=== PATIENT | female | born 2000 | race Two or more races ===

== ENCOUNTER 2025-09-03 05:39 | Inpatient (IN) | payer MEDICAID, SELFPAY ==
--- NOTE | 2025-08-30 09:00 | ESHP_ITS ---
RE: ELISABET REEDER : 2000 DATE OF ADMISSION: 09/03/2025 HISTORY OF PRESENT ILLNESS: This is a 25-year-old 2 para 1 with due date of 09/10 with intrauterine at 39 weeks on 09/03 who presents for repeat delivery. She denies any leaking or bleeding. She reports normal movement. She has occasional contractions. ALLERGIES: NO KNOWN DRUG ALLERGIES. MEDICATIONS: multivitamin. SOCIAL HISTORY: She denies any alcohol, drug use, or smoking. PAST MEDICAL HISTORY: Denies. PAST SURGICAL HISTORY: delivery 2017. OB HISTORY: On 07/01/2018, a 39 weeks, delivery, 7-pound male in [place], no complications. REVIEW OF SYSTEMS: She denies any chest pain, palpitations, cough, fever, shortness of breath, or lower extremity pain. She denies any flank pain. PHYSICAL EXAMINATION: VITAL SIGNS: Blood pressure is 110/66, heart rate 88, respiration 18. Temperature is 98.6. Weight 157 pounds. HEENT: Oropharynx and sclerae clear. LUNGS: Clear to auscultation bilaterally. HEART: Regular rate and rhythm. ABDOMEN: Gravid, term size. Old Pfannenstiel scar noted. EXTREMITIES: Nontender. SKIN: No gross rashes or lesions. NEUROLOGIC: No focal deficit. ASSESSMENT AND PLAN: Intrauterine at 39 weeks and 0 days on 09/03. Previous delivery. Elective repeat delivery. PLAN: Repeat delivery. Informed consent was obtained. The patient was made aware of the risks, complications, alternatives, and benefits of the proposed procedure, and she agrees. DT: 09:29:51 TT: 09:42:00 Ref: [id number] - TID: [id number] MTDD
[2025-09-02 12:16] LABS: Basophils # (Auto) 0.0 Thou/mm3 (0.0-0.2); Basophils % (Auto) 0 % (0-2.5); Eosinophils # (Auto) 0.1 Thou/mm3 (0.0-0.5); Eosinophils % (Auto) 1 % (0-10); Hematocrit 37.9 % (36.0-46.0); Hemoglobin 12.7 g/dL (12.0-16.0); Immature Granulocytes Auto 0.03 Thou/mm3 (0.00-0.00); Lymphocytes # (Auto) 2.4 Thou/mm3 (1.0-4.8); Lymphocytes % (Auto) 21 % (10-50); Mean Corpuscular HGB Conc 33.5 g/dl (31.0-37.0); Mean Corpuscular Hemoglobin 29.7 pg (25.0-35.0); Mean Corpuscular Volume 89 fL (80-100); Monocytes # (Auto) 0.7 Thou/mm3 (0.0-0.8); Monocytes % (Auto) 6 % (0-12); Neutrophils # (Auto) 7.8 Thou/mm3 (1.8-7.7); Neutrophils % (Auto) 71 % (37-80); Nucleated Red Blood Cell # 0.00 Thou/mm3 (0.00-0.00); Nucleated Red Blood Cell % 0 /100 WBC (0); Platelet Count 171 Thou/mm3 (140-440); RDW Standard Deviation 41.0 fL (36.4-46.3); Red Blood Count 4.28 Miln/mm3 (4.00-5.20); White Blood Count 11.0 Thou/mm3 (3.6-11.0)
[2025-09-02 12:29] LABS: Alanine Aminotransferase 16 U/L (10-49); Albumin, Serum 4.3 gm/dL (3.5-5.0); Albumin/Globulin Ratio 1.7 (1.2-2.2); Alkaline Phosphatase 177 U/L (46-116); Anion Gap 9 (7-16); Aspartate Amino Transferase 22 U/L (0-34); BUN/Creatinine Ratio 11 Ratio (12-20); Bilirubin,Total 0.5 mg/dL (0.3-1.2); Blood Urea Nitrogen 8 mg/dL (9-23); Calcium 9.3 mg/dL (8.3-10.6); Calcium (Corrected) 9.3 mg/dL (8.5-10.1); Carbon Dioxide 24.3 mMol/L (20.0-31.0); Chloride 107 mMol/L (98-107); Creatinine (Component) 0.7 mg/dL (0.6-1.3); Globulin 2.5 gm/dL (2.3-3.5); Glucose 81 mg/dL (74-106); Osmolality,Calculated 276 (275-295); Potassium 4.3 mMol/L (3.4-5.1); Sodium 140 mMol/L (136-145); Total Protein 6.8 gm/dL (5.7-8.2); eGFR > 60 See Note
[2025-09-02 12:45] LABS: Syphilis Nonreactive (Nonreactive)
[2025-09-02 14:36] LABS: INR 0.9 (0.9-1.3); Partial Thromboplastin Time 27.1 Seconds (22.0-36.0); Prothrombin Time 9.7 Seconds (9.0-12.2)
[2025-09-03] VITALS (34 sets, daily range): BP systolic 100–150; BP diastolic 58–84; PULSE 61–87; RESP 12–21; TEMP 36.3–37; O2SAT 95–100; BMI 26.6
[2025-09-03] MEDS: RINGERS LACTATED 1000 ML 1,000 ML 500 ML IV ×3 (06:10→07:24)
[2025-09-03] MEDS: FAMOTIDINE INJ 10 MG/ML VIAL 2 ML 20 MG IV (07:24)
[2025-09-03] MEDS: CITRIC ACID/SODIUM CITR 15 ML UDC (BICITRA) 30 ML PO (07:24)
[2025-09-03] MEDS: ceFAZolin/D5W 2 GM IV 2 GM/100 ML BAG IV (07:25)
--- NOTE | 2025-09-03 07:36 | PD.ADDHP ---
Addendum History & Physical Addendum Date of report being addended: 09/03/25 Narrative: Patient rexamined. H and P remains unchanged except for pt complains of a rash on the lower abdomen around her old pfannensteil incision. Exam consistent with tinea corporis. Plan for Clotrimazole applications x 7 days.
--- NOTE | 2025-09-03 07:38 | PD.LDDS ---
DS: Providers Provider Date of admission: 09/03/25 05:39 Primary care physician: Danilo Powell MD Admitting Provider: Danilo Powell MD Attending Provider on Admission: Danilo Powell MD Attending Provider on DC: Danilo Powell MD Discharging Provider: Danilo Powell MD DS: Diagnosis Problem List Completed Was Problem List Reviewed/Reconciled?: Yes Summary/Hosp Course Peripartum Data Procedures: Procedures Operation Date: 09/03/25 07:45 <No data on this case meets the specified criteria> Time Spent with Patient Time attestation: Total time spent providing and/or coordinating discharge services: Exam Vital Signs Temp Pulse Resp BP Pulse Ox 98.6 F 85 17 123/73 97 09/03/25 06:45 09/03/25 05:58 09/03/25 06:45 09/03/25 05:58 09/03/25 07:17 Discharge Plan Plan Patient Disposition: HOME (Self Care) Patient condition on transfer: Stable Prescriptions/Referrals Prescriptions/Med Rec: New ibuprofen 600 mg tablet 600 mg PO Q6H PRN (Reason: pain) Qty: 30 0RF PNV no.95-ferrous fumarate-FA [] 28 mg iron- 800 mcg tablet 1 tab PO QDAY Qty: 90 3RF Referrals: Danilo Powell MD [Primary Care Provider, [facility]] Patient/Caregiver Discharge Instructions Discharge Activity: activity as tolerated Other Discharge Activity Instructions:: Follow up office 1 week Education Materials: C Section Dc Print Language: Albanian Stand Alone Forms: Benita Award Info., Patient Portal Info Letter Discharge Order Discharge Orders: Discharge (Routine); Ordered 09/05/25 Ordered By: Danilo Powell Planned Discharge Date 09/05/25
--- NOTE | 2025-09-03 07:38 | PD.GYNPROC ---
Operative Note - [facility]IST[facility] CO[facility] Procedure Date of procedure: 09/03/25 Procedure Performed: Repeat low-transverse section via Pfannenstiel skin incision Indication: Intrauterine at 39 weeks and 0 days Previous delivery Elects repeat delivery Pre-Op diagnosis: Intrauterine at 39 weeks and 0 days Previous delivery Elects repeat delivery Post-Op diagnosis: Intrauterine at 39 weeks and 0 days Previous delivery Elects repeat delivery Anesthesia type: Spinal Procedure description: After proper informed consent was obtained and the patient was made aware of the risks, complications, alternatives and benefits of the proposed procedure she was taken to the operating room where she underwent induction of spinal anesthesia. She was prepped and draped in the usual sterile fashion. A timeout was performed.? A Pfannenstiel skin incision was made with the scalpel and carried through to the underlying layer of fascia with the Bovie. The fascia was nicked in the midline incision and the incision was extended bilaterally with the Bovie. The inferior aspect of the fascial incision was grasped with Yamileth clamps elevated and the underlying rectus muscle dissected off with the Bovie. The superior aspect the fascial incision was grasped with Yamileth clamps elevated and the underlying rectus muscle dissected off with the Bovie. The rectus muscles were in the midline. The peritoneum was grasped between 2 Mcclellan clamps and entered sharply with the Metzenbaum scissors. The peritoneum was extended superiorly and inferiorly with good visualization of the bladder. The vesicouterine peritoneum was incised transversely and the bladder flap created digitally. A [place] blade was inserted. A low transverse incision was made in the uterus with a scapel and the incision was extended digitally. The female 's head delivered and the mouth and nose were suctioned with the bulb suction. The nuchal cord reduced. The shoulder and body delivered atraumatically. The cord was clamped after 30 second delayed cord clamping and the cord was cut.? The infant was handed off to the waiting Pediatric staff, cord blood was collected for lab testing. The placenta was removed complete and intact. The uterus was exteriorized and cleared of all clots and debris. The uterus was initially atonic but responded to uterotonic's . The uterine incision was closed with #1-0 chromic catgut suture in a running interlocking fashion. A second layer of the same suture was used to imbricate the first layer and obtain excellent hemostasis. The vesicouterine peritoneum was closed with 2-0 chromic catgut suture in a running fashion. The firm uterus was returned to the abdomen. The gutters were cleared of all clots and debris. The peritoneum was closed with 0 chromic catgut suture in running fashion. The rectus muscle was closed with 0 chromic catgut suture. The fascia was closed with 0 Vicryl beginning at each angle and ending in the center in a running fashion. The subcutaneous tissue was irrigated with warmed normal saline solution and found to be hemostatic. The subcutaneous tissue was closed with 2-0 chromic catgut suture in a running fashion. The skin was closed with 4-0 Monocryl. A Dermabond Prineo dressing was applied and a sterile pressure dressing was applied.? She tolerated the procedure well. Counts were correct. I discussed with the patient the nature of her condition, intraoperative findings and expectation for recovery all? questions answered. Specimen: none Findings: Live infant female Weight 7 lbs 5 oz Apgars 8 and 9 Clear amniotic fluid Placenta removed complete and intact Cephalic Uterus ovaries and tubes grossly within normal limits Uterus initially atonic but responded to uterotonic's Complications: other (Uterine atony) Surgical staff JEISON Mckenzie Dr, Surgeon Operation Date: 09/03/25 07:45 <No data on this case meets the specified criteria> Diagnosis Discharge Diagnosis (1) delivery delivered: Status: Acute Problem List Completed Was Problem List Reviewed/Reconciled?: Yes
[2025-09-03] MEDS: CLOTRIMAZOLE CR 1% 30 GM TUBE TOP (08:42)
[2025-09-03] MEDS: OXYTOCIN in NS 20 units 20 UNIT/1,000 ML BAG 125 UNIT IV ×2 (09:18→18:12)
[2025-09-03] MEDS: MEPERIDINE INJ 50 MG/ML VIAL 25 MG IVP (09:19)
[2025-09-03] MEDS: ACETAMINOPHEN IVPB 1,000 MG/100 ML VIAL 250 MG IV (10:23)
--- NOTE | 2025-09-03 12:34 | OBDSUM_ITS ---
Data (Gonzalez) Data : 2 Delivery Data (Gonzalez) Labor Data Induction/Augmentation Agent: None ROM date: 09/03/25 ROM time: 08:03 Amniotic membrane rupture type: Artificial Amniotic fluid description: Clear Delivery Data EDC: 09/10/25 EDC calculated by:: LMP/early US confirmation delivery date: 09/03/25 [place] delivery time: 08:03 Gestational age (weeks): 39 Gestational age (days): 0 Placenta delivery date: 09/03/25 Placenta delivery time: 08:05 Delivered by: Delivery nurse: dank cali Neworn nurse: rain cali Window Trimmer Apprentice at delivery: No Support person(s) at delivery: fob Delivery Method Delivery method: Low Transverse Presentation: Vertex position: OA Anesthesia Type Anesthesia Type: Spinal Anesthesia type: Spinal Placenta Placenta delivery description: Manual Removal Cord blood sent to lab: Yes cord blood collection: Cord Blood Type Episiotomy Episiotomy description: None EBL Estimated blood loss (ml): 500 Umbilical Cord cord description: 3 Vessels and Nuchal Cord Additional Procedures None Complications Complications: Uterine atony Data (Gonzalez) [place] Data order: 1 's gender: Female Identification band number: [id number] weight (gms): 7 lb 4.757 oz Weight (pounds): 7 lbs and 4.8 ozs [place] length: 20.47 in 1 minute: 8 5 minutes: 9
[2025-09-03 13:53] LABS: Basophils # (Auto) 0.0 Thou/mm3 (0.0-0.2); Basophils % (Auto) 0 % (0-2.5); Eosinophils # (Auto) 0.0 Thou/mm3 (0.0-0.5); Eosinophils % (Auto) 0 % (0-10); Hematocrit 40.2 % (36.0-46.0); Hemoglobin 13.6 g/dL (12.0-16.0); Immature Granulocytes Auto 0.09 Thou/mm3 (0.00-0.00); Lymphocytes # (Auto) 1.1 Thou/mm3 (1.0-4.8); Lymphocytes % (Auto) 5 % (10-50); Mean Corpuscular HGB Conc 33.8 g/dl (31.0-37.0); Mean Corpuscular Hemoglobin 29.4 pg (25.0-35.0); Mean Corpuscular Volume 87 fL (80-100); Monocytes # (Auto) 0.3 Thou/mm3 (0.0-0.8); Monocytes % (Auto) 2 % (0-12); Neutrophils # (Auto) 18.7 Thou/mm3 (1.8-7.7); Neutrophils % (Auto) 92 % (37-80); Nucleated Red Blood Cell # 0.00 Thou/mm3 (0.00-0.00); Nucleated Red Blood Cell % 0 /100 WBC (0); Platelet Count 178 Thou/mm3 (140-440); RDW Standard Deviation 39.2 fL (36.4-46.3); Red Blood Count 4.62 Miln/mm3 (4.00-5.20); White Blood Count 20.3 Thou/mm3 (3.6-11.0)
[2025-09-04 03:49] VITALS: BP 100/57; PULSE 73; RESP 19; TEMP 36.9; O2SAT 95
[2025-09-04 07:21] VITALS: BP 116/73; PULSE 70; RESP 16; TEMP 36.6; O2SAT 98
[2025-09-04] MEDS: IBUPROFEN TAB 400 MG TABLET 800 MG PO (07:42)
[2025-09-04] MEDS: CLOTRIMAZOLE CR 1% 30 GM TUBE TOP ×2 (07:50→19:59)
--- NOTE | 2025-09-04 07:55 | ESPR_ITS ---
RE: ELISABET REEDER : 2000 DATE OF SERVICE: 09/04/2025 SUBJECTIVE: Post-op day #1, patient denies any problem or complaint. She is voiding and ambulating and tolerating a regular diet. She is passing flatus. She denies any excessive vaginal bleeding. She denies any dizziness or lightheadedness. She denies any chest pain, palpitation, shortness of breath, or lower extremity pain. OBJECTIVE: VITAL SIGNS: Blood pressure 100/57, heart rate 73, respirations 19, temperature is 98.4, pulse ox is 95% on room air. LUNGS: Clear to auscultation bilaterally. HEART: Regular rate and rhythm. ABDOMEN: Dressing dry and intact. Fundus is firm. EXTREMITIES: Nontender. Hemoglobin pre-delivery is 12.7, post delivery is 13.6. ASSESSMENT: Post-op day #1 status post delivery. PLAN: Remove dressing. Discontinue IV. support. Encourage ambulation. Possible discharge home tomorrow. DT: 05:24:56 TT: 07:54:00 Ref: [id number] - TID: [id number]
[2025-09-04] MEDS: ENOXAPARIN SOD INJ 40 MG/0.4 ML SYRINGE SC (09:56)
[2025-09-04] MEDS: DOCUSATE SOD 100 MG CAPSULE PO (09:56)
[2025-09-04] MEDS: SIMETHICONE 80 MG CHEW PO (15:03)
[2025-09-04] MEDS: HYDROcodone/APAP 5/325 TABLET 1 TAB PO ×2 (15:03→21:34)
[2025-09-04 15:20] VITALS: BP 106/58; PULSE 63; RESP 17; TEMP 36.7; O2SAT 99
[2025-09-04 20:00] VITALS: BP 120/74; PULSE 69; RESP 18; TEMP 36.5; O2SAT 98
[2025-09-05] MEDS: IBUPROFEN TAB 400 MG TABLET 800 MG PO ×2 (03:25→08:22)
[2025-09-05 04:00] VITALS: BP 99/64; PULSE 63; RESP 16; TEMP 36.9; O2SAT 98
--- NOTE | 2025-09-05 06:48 | ESPR_ITS ---
RE: ELISABET REEDER : 2000 DATE OF SERVICE: 09/05/2025 SUBJECTIVE: Postoperative day #2. Patient denies any problem or complaints. She is voiding. She is ambulating. She is tolerating regular diet. She is passing flatus. She denies any excessive vaginal bleeding. She denies any dizziness or lightheadedness. She denies any chest pain, palpitation, shortness of breath, or lower extremity pain. OBJECTIVE: VITAL SIGNS: Blood pressure 99/64, heart rate 63, respirations 16, temperature is 98.4. Pulse ox is 98% on room air. LUNGS: Clear to auscultation bilaterally. HEART: Regular rate rhythm. ABDOMEN: Nondistended. Fundus is firm. Incision clear and intact. EXTREMITIES: Nontender. ASSESSMENT: Postoperative day #2 status post delivery. PLAN: Discharge home. Discharge instructions given. Follow up in the office in 1 week. DT: 04:50:58 TT: 06:47:00 Ref: [id number] - TID: [id number]
[2025-09-05 08:00] VITALS: BP 105/65; PULSE 71; RESP 17; TEMP 36.7; O2SAT 97
[2025-09-05] MEDS: ENOXAPARIN SOD INJ 40 MG/0.4 ML SYRINGE SC (08:22)
[2025-09-05] MEDS: DOCUSATE SOD 100 MG CAPSULE PO (08:23)
[2025-09-05] MEDS: ACETAMINOPHEN 325 MG TABLET 650 MG PO (13:56)
== END 2025-09-05 16:09 | disposition home or self-care (01) | DRG 540 ==
LOC: S4SX 07:50 → S4NX 08:08
PROVIDERS: Admitting Provider Specialist; PCP Specialist; Visit Provider Specialist
PROC: 10D00Z1 Extraction of Products of Conception, Low, Open Approach (ICD-10-PCS; CPT 59514; principal; 2025-09-03 07:30)
DX: O34.211 Maternal care for low transverse scar from previous cesarean delivery (principal); O69.81X0 Labor and delivery complicated by cord around neck, without compression, not applicable or unspecified; O99.72 Diseases of the skin and subcutaneous tissue complicating childbirth; B35.4 Tinea corporis; O62.2 Other uterine inertia; Z37.0 Single live birth; Z3A.39 39 weeks gestation of pregnancy
CPT/HCPCS: 36415; 80053; 85025; 85610; 85730; 86780; 86850; 86900; 86901; A4217; A4314; A4649; J0131; J0689; J1100; J1650; J2175; J2210; J2274; J2371; J2405; J2590; J3010; J3490; J7120; S0191; A9270; J2270